=== PATIENT | male | born 1950 | race Caucasian/White ===

== ENCOUNTER 2021-10-27 09:51 | Emergency (ER) | payer MEDICARE, BC ==
[2021-10-27] MEDS ORDERED: Sodium Chloride 0.9% 10 ML Syringe FLUSH PRN (10:50)
--- NOTE | 2021-10-27 11:08 | EDM.PDOC ---
ED HPI GENERAL MEDICAL PROBLEM - General Chief Complaint: Respiratory Problem Stated Complaint: SOB Time Seen by Provider: 10/27/21 10:41 Source of Information: Reports: Patient, Family (son/), Old Records (Patient's [employer]), RN Notes Reviewed History Limitations: Reports: No Limitations - History of Present Illness INITIAL COMMENTS - FREE TEXT/NARRATIVE: Patient is a 71-year-old male who presents to the ER for his ongoing shortness of breath. Patient was diagnosed with stage IV renal cell cancer, on . States that he only has 1 kidney. Patient states that since the diagnosis of the cancer, he has felt increasingly more short of breath. States that he is on 2 L nasal cannula at baseline but yesterday and today he did increase his oxygen needs to 3 L via nasal cannula. Patient's O2 sats around 91% on this, and respirations at around 30 breaths/min. Patient has a baseline cough and states it has not worsened, he has had no discernible fevers or chills, or any sort of nausea/vomiting/diarrhea. Patient's oncologist is Dr. Mcguire, states he is getting immunotherapy currently and he is to start oral chemo at the beginning of 2021. His last round of immunotherapy was Thursday, October 21, 2021. States he has been tolerating this fairly well. Patient also has had a consultation with Dr. Robles to see if they could get some of the "fluid taken off of his lungs", but Dr. Roblse opted to not pull this fluid off as he thought that the risk outweighed the benefit at that time. - Related Data Allergies Allergy/AdvReac Type Severity Reaction Status Date / Time No Known Allergies Allergy Verified 10/27/21 11:18 Home Meds: Home Meds Albuterol [Take Home: Albuterol 18 GM, 1 INH Pack] 2 puff INH Q4HR PRN 10/27/21 [History] Axitinib [Inlyta] 1 mg PO Q12H 10/27/21 [History] Beta-Carotene(A) w/C & E/Min [Prosight] 1 tab PO DAILY 10/27/21 [History] Ciprofloxacin HCl [Cipro] 500 mg PO BID 10/27/21 [History] Docusate Sodium [Colace] 100 mg PO BID PRN 10/27/21 [History] Losartan Potassium 100 mg PO DAILY 10/27/21 [History] Mirtazapine 15 - 30 mg PO BEDTIME 10/27/21 [History] Morphine Sulfate [Morphine Sulfate ER] 7.5 mg PO Q6HR PRN 10/27/21 [History] Slaughters-3 Fatty Acids/Fish Oil [Cvs Fish Oil 1,200 mg Softgel] 1,000 mg PO DAILY 10/27/21 [History] allopurinoL [Zyloprim] 100 mg PO TID 10/27/21 [History] atorvaSTATin [Lipitor] 10 mg PO BEDTIME 10/27/21 [History] dronabinoL [Dronabinol] 5 mg PO BID 10/27/21 [History] gemfibroziL [Gemfibrozil] 600 mg PO DAILY 10/27/21 [History] Past Medical History Gastrointestinal History: Reports: Other (See Below) (only has one kidney) Oncologic (Cancer) History: Reports: Renal (stage 4 renal cancer; starting oral chemo Nov 2021) - Past Surgical History GI Surgical History: Reports: Other (See Below) (nephrectomy) - History Comment History Comment: on continuous O2, typically on 2L ED ROS GENERAL - Review of Systems Review Of Systems: Comprehensive ROS is negative, except as noted in HPI. ED EXAM, GENERAL - Physical Exam Exam: See Below Exam Limited By: No Limitations General Appearance: Alert, WD/WN, No Apparent Distress Respiratory/Chest: No Respiratory Distress (pt is tachypenic, but has no dicernable respiratory distress), Lungs Clear, Normal Breath Sounds, No Accessory Muscle Use, Chest Non-Tender Cardiovascular: Normal Peripheral Pulses, Regular Rate, Rhythm, No Edema Peripheral Pulses: 2+: Radial (R), Femoral (L) GI/Abdominal: Normal Bowel Sounds, Soft, Non-Tender, No Distention, No Mass Extremities: Normal Inspection, Normal Capillary Refill Neurological: Alert, Oriented, Normal Cognition, No Motor/Sensory Deficits Psychiatric: Normal Affect, Normal Mood Skin Exam: Warm, Dry, Intact, Normal Color, No Rash #1 Interpretation EKG Date: 10/27/21 Time: 11:05 Rhythm: Other (sinus tach) Rate (Beats/Min): 103 [place]: Normal P-Wave: Present QRS: LBBB ST-T: Normal QT: Normal Comparison: NA - No Prior EKG EKG Interpretation Comments: No obvious ischemia or acute ST changes noted, reviewed by myself and Dr. Santos. Course - Vital Signs Last Recorded V/S: Last Vital Signs Temp 98.5 F 10/27/21 17:49 Pulse 107 H 10/27/21 17:49 Resp 18 10/27/21 17:49 BP 129/61 10/27/21 17:49 Pulse Ox 91 L 10/27/21 10:39 - Orders/Labs/Meds Orders: Active Orders 24 hr Category Date Time Status Notify Provider Consults [RC] ASDIRECTED Care 10/27/21 14:07 Active Peripheral IV Care [RC] . DIRECTED Care 10/27/21 10:51 Active Consult to Physician [CONS] Stat Cons 10/27/21 14:06 Active BLOOD CULTURE [MREF] Stat Lab 10/27/21 12:35 Received BLOOD CULTURE [MREF] Stat Lab 10/27/21 12:46 Received UA W/MICROSCOPIC [URIN] Stat Lab 10/27/21 12:02 Ordered Sodium Chloride 0.9% [Normal Saline] 250 ml Med 10/27/21 13:45 Active IV ASDIRECTED Sodium Chloride 0.9% [Saline Flush] Med 10/27/21 10:50 Active 10 ml FLUSH ASDIRECTED PRN Blood Culture x2 Reflex Set [OM.PC] Stat Oth 10/27/21 12:19 Ordered Peripheral IV Insertion Adult [OM.PC] Routine Oth 10/27/21 10:50 Ordered Transfuse PRBC [Transfuse Red Blood Cells] [COMM] Stat Oth 10/27/21 12:56 Ordered Transfuse Red Blood Cells [COMM] Stat Oth 10/27/21 14:14 Ordered EKG 12 Lead [EK] Stat Ther 10/27/21 10:51 Ordered Medication Orders Sodium Chloride (Normal Saline) 250 mls @ 25 mls/hr IV ASDIRECTED GILBERT Last Admin: 10/27/21 14:25 Dose: 25 mls/hr Documented by: DORA Sodium Chloride (Sodium Chloride 0.9% 10 Ml Syringe) 10 ml FLUSH ASDIRECTED PRN PRN Reason: Keep Vein Open Last Admin: 10/27/21 11:21 Dose: 10 ml Documented by: CINTHYA Labs: Laboratory Tests 10/27/21 10/27/21 10/27/21 Range/Units 11:14 11:14 11:14 WBC 28.79 H (4.23-9.07) K/mm3 RBC 2.71 L (4.63-6.08) M/mm3 Hgb 6.9 L* (13.7-17.5) gm/dl Hct 24.6 L (40.1-51.0) % MCV 90.8 (79.0-92.2) fl MCH 25.5 L (25.7-32.2) pg MCHC 28.0 L (32.2-35.5) g/dl RDW Std Deviation 55.7 H (35.1-43.9) fL Plt Count 649 H (163-337) K/mm3 MPV 9.3 L (9.4-12.3) fl Neut % (Auto) 81.1 H (34.0-67.9) % Lymph % (Auto) 4.8 L (21.8-53.1) % Union % (Auto) 11.3 (5.3-12.2) % Eos % (Auto) 0.4 L (0.8-7.0) Baso % (Auto) 0.2 (0.1-1.2) % Neut # (Auto) 23.35 H (1.78-5.38) K/mm3 Lymph # (Auto) 1.38 (1.32-3.57) K/mm3 [place] # (Auto) 3.25 H (0.30-0.82) K/mm3 Eos # (Auto) 0.11 (0.04-0.54) K/mm3 Baso # (Auto) 0.07 (0.01-0.08) K/mm3 Manual Slide Review Abnormal smear Sodium 139 (136-145) mEq/L Potassium 4.4 (3.5-5.1) mEq/L Chloride 104 (98-107) mEq/L Carbon Dioxide 25 (21-32) mEq/L Anion Gap 14.4 (5-15) BUN 39 H (7-18) mg/dL Creatinine 1.6 H (0.7-1.3) mg/dL Est Cr Clr Drug Dosing TNP Estimated GFR (MDRD) 43 (>60) mL/min BUN/Creatinine Ratio 24.4 H (14-18) Glucose 117 H (70-99) mg/dL Calcium 8.7 (8.5-10.1) mg/dL Magnesium 2.0 (1.8-2.4) mg/dL Total Bilirubin 0.8 (0.2-1.0) mg/dL AST 31 (15-37) U/L ALT 17 (16-63) U/L Alkaline Phosphatase 72 (46-116) U/L Troponin I (0.00-0.056) ng/mL C-Reactive Protein 39.0 H* (<1.0) mg/dL NT-Pro-B Natriuret Pep (0-125) pg/mL Total Protein 7.3 (6.4-8.2) g/dl Albumin 1.4 L (3.4-5.0) g/dl Globulin 5.9 gm/dL Albumin/Globulin Ratio 0.2 L (1-2) Influenza Type A RNA (NEGATIVE) Influenza Type B RNA (NEGATIVE) SARS-CoV-2 RNA ([place]EL) (NEGATIVE) Blood Type Gel Antibody Screen Crossmatch 10/27/21 10/27/21 10/27/21 Range/Units 11:14 11:14 11:14 WBC (4.23-9.07) K/mm3 RBC (4.63-6.08) M/mm3 Hgb (13.7-17.5) gm/dl Hct (40.1-51.0) % MCV (79.0-92.2) fl MCH (25.7-32.2) pg MCHC (32.2-35.5) g/dl RDW Std Deviation (35.1-43.9) fL Plt Count (163-337) K/mm3 MPV (9.4-12.3) fl Neut % (Auto) (34.0-67.9) % Lymph % (Auto) (21.8-53.1) % Union % (Auto) (5.3-12.2) % Eos % (Auto) (0.8-7.0) Baso % (Auto) (0.1-1.2) % Neut # (Auto) (1.78-5.38) K/mm3 Lymph # (Auto) (1.32-3.57) K/mm3 [place] # (Auto) (0.30-0.82) K/mm3 Eos # (Auto) (0.04-0.54) K/mm3 Baso # (Auto) (0.01-0.08) K/mm3 Manual Slide Review Sodium (136-145) mEq/L Potassium (3.5-5.1) mEq/L Chloride (98-107) mEq/L Carbon Dioxide (21-32) mEq/L Anion Gap (5-15) BUN (7-18) mg/dL Creatinine (0.7-1.3) mg/dL Est Cr Clr Drug Dosing Estimated GFR (MDRD) (>60) mL/min BUN/Creatinine Ratio (14-18) Glucose (70-99) mg/dL Calcium (8.5-10.1) mg/dL Magnesium (1.8-2.4) mg/dL Total Bilirubin (0.2-1.0) mg/dL AST (15-37) U/L ALT (16-63) U/L Alkaline Phosphatase (46-116) U/L Troponin I < 0.017 (0.00-0.056) ng/mL C-Reactive Protein (<1.0) mg/dL NT-Pro-B Natriuret Pep 2627 H (0-125) pg/mL Total Protein (6.4-8.2) g/dl Albumin (3.4-5.0) g/dl Globulin gm/dL Albumin/Globulin Ratio (1-2) Influenza Type A RNA (NEGATIVE) Influenza Type B RNA (NEGATIVE) SARS-CoV-2 RNA ([place]) (NEGATIVE) Blood Type A POSITIVE Gel Antibody Screen Negative Crossmatch 10/27/21 10/27/21 Range/Units 11:17 11:45 WBC (4.23-9.07) K/mm3 RBC (4.63-6.08) M/mm3 Hgb (13.7-17.5) gm/dl Hct (40.1-51.0) % MCV (79.0-92.2) fl MCH (25.7-32.2) pg MCHC (32.2-35.5) g/dl RDW Std Deviation (35.1-43.9) fL Plt Count (163-337) K/mm3 MPV (9.4-12.3) fl Neut % (Auto) (34.0-67.9) % Lymph % (Auto) (21.8-53.1) % [place] % (Auto) (5.3-12.2) % Eos % (Auto) (0.8-7.0) Baso % (Auto) (0.1-1.2) % Neut # (Auto) (1.78-5.38) K/mm3 Lymph # (Auto) (1.32-3.57) K/mm3 [place] # (Auto) (0.30-0.82) K/mm3 Eos # (Auto) (0.04-0.54) K/mm3 Baso # (Auto) (0.01-0.08) K/mm3 Manual Slide Review Sodium (136-145) mEq/L Potassium (3.5-5.1) mEq/L Chloride (98-107) mEq/L Carbon Dioxide (21-32) mEq/L Anion Gap (5-15) BUN (7-18) mg/dL Creatinine (0.7-1.3) mg/dL Est Cr Clr Drug Dosing Estimated GFR (MDRD) (>60) mL/min BUN/Creatinine Ratio (14-18) Glucose (70-99) mg/dL Calcium (8.5-10.1) mg/dL Magnesium (1.8-2.4) mg/dL Total Bilirubin (0.2-1.0) mg/dL AST (15-37) U/L ALT (16-63) U/L Alkaline Phosphatase (46-116) U/L Troponin I (0.00-0.056) ng/mL C-Reactive Protein (<1.0) mg/dL NT-Pro-B Natriuret Pep (0-125) pg/mL Total Protein (6.4-8.2) g/dl Albumin (3.4-5.0) g/dl Globulin gm/dL Albumin/Globulin Ratio (1-2) Influenza Type A RNA Negative (NEGATIVE) Influenza Type B RNA Negative (NEGATIVE) SARS-CoV-2 RNA ([place]) Negative (NEGATIVE) Blood Type Gel Antibody Screen Crossmatch See Detail Meds: Medications Generic Name Dose Route Start Last Admin Trade Name Freq PRN Reason Stop Dose Admin Sodium Chloride 250 mls @ 25 mls/hr 10/27/21 13:45 10/27/21 14:25 Normal Saline IV 25 mls/hr ASDIRECTED GILBERT Administration Sodium Chloride 10 ml 12/20/21 10:50 10/27/21 11:21 Sodium Chloride 0.9% 10 Ml Syringe FLUSH 10 ml ASDIRECTED PRN Administration Keep Vein Open Discontinued Medications Generic Name Dose Route Start Last Admin Trade Name Zamzam PRN Reason Stop Dose Admin Furosemide 20 mg 10/27/21 15:09 10/27/21 17:22 Furosemide 40 Mg/4 Ml Vial IVPUSH 10/27/21 15:10 20 mg NOW ONE Administration - Re-Assessments/Exams Free Text/Narrative Re-Assessment/Exam: 10/27/21 11:07 Patient presents to the ER for the evaluation of his worsening shortness of breath, we will go ahead and repeat some labs, chest x-ray for ongoing evaluation/management. 10/27/21 12:06 Chest x-ray demonstrates a hazy density within the left mid and lower lung, questionable small left-sided pleural effusion. Due to these findings we will go ahead and do a chest CT with no contrast for further evaluation. Labs have started to result, CBC is markedly elevated at 28,000 with 81% neutrophils on the auto differential, hemoglobin is low at 6.9, metabolic panel shows elevated creatinine at 1.6, low GFR at 43 and a BUN at 39, and a BNP at 2900. Troponin is undetectably low and COVID/flu were negative. 10/27/21 13:21 CT demonstrated a fairly large left-sided pleural effusion causing left-sided atelectasis, right lung field is clear. No mediastinal adenopathy was appreciated. Images of the abdomen show numerous nodular densities within the mesentery presumably due to multiple lymph nodes. Mild amount of ascites seen around the liver and spleen. I did have a chance to talk with Yara Pearson, his oncology nurse practitioner, and she does recommend that we transfuse and try to do a thoracentesis if possible. I did go over all of the other lab values with her as well, and she thought that all of these sounded extremely normal for his clinical picture and that he could likely be discharged to home after the transfusion and thoracentesis if able, unless his clinical course would deteriorate. I did call Dr. Jordan, as our surgeon on-call and he would like the patient to try to get the blood initially and see if the patient can follow-up on outpatient basis for the thoracentesis. 10/27/21 14:[address] Jordan again, and due to the patient living in [place] I asked if he would come evaluate the patient for possible thoracentesis, he stated he would be down shortly and to have the nurse get a thoracentesis tray ready. 10/27/21 15:21 Dr. Jordan was in to evaluate the patient, and after review of his labs, he would like the patient to try to be diuresed, and hold off on the thoracentesis at this time, so I have ordered 20 mg IV Lasix to be given. 10/27/21 18:42 Was made aware by nursing staff, that the patient tolerated the first unit well, 20 mg Lasix was given in between the units and she states that he did void however she is not sure how much this was at this time. I was able to speak with Yara Pearson again, she states that she will start him on oral Lasix to robles, and she has repeat labs set up for him. She was raising the question of a PE at this time however due to his kidney status at today's visit along with his fluid retention we did not do a CTA of his chest, she can arrange for a V/Q out patient scan for management if still clinically warranted. Departure - Departure Time of Disposition: 18:51 Disposition: Home, Self-Care 01 Condition: Good Clinical Impression: Low hemoglobin, Elevated brain natriuretic peptide (BNP) level, SOB (shortness of breath) - Discharge Information *PRESCRIPTION DRUG MONITORING PROGRAM REVIEWED*: No *COPY OF PRESCRIPTION DRUG MONITORING REPORT IN PATIENT JACK: No Instructions: Managing Low Blood Counts During Cancer Treatment Referrals: Carlos Eduardo Mcguire MD [Primary Care Provider] - Forms: ED Department Discharge Additional Instructions: You were evaluated in the ER today for your acute shortness of breath. Your work-up in the ER today included a Covid screen, chest imaging and labs. This did demonstrate a low hemoglobin, and elevated BNP, and a worsening pleural effusion. Due to your low blood count, and elevated BNP, you did require blood transfusion and needed to be given some Lasix to get some of the fluid off. Surgery was consulted on your case regarding your worsening pleural effusion however Dr. Jordan thought you would benefit more from the blood transfusion and Lasix medication. He would recommend that you hold off on a thoracentesis at this time. I did speak with your provider, Yara Pearson and she has set up labs for you for tomorrow, and you will be started on oral Lasix for ongoing management on outpatient basis. Recommend you follow-up with Juanita tomorrow for ongoing management if needed, she can arrange a VQ scan, and/or another consult with Dr. Robles for possible thoracentesis. Unfortunately it is ultimately surgeons decision to do or not to do procedures, so I apologize for not being able to get the thoracentesis done for you today however I do believe strongly in Dr. Jordan's clinical judgment and if he did not think it be beneficial for you at this time; then he wouldn't recommend them. Do not hesitate to return to the ER at any time if symptoms change or worsen. Thank you for allowing and choosing us to be involved in your healthcare needs. Sepsis Event Note (ED) - Evaluation Sepsis Screening Result: No Definite Risk - Focused Exam Vital Signs: Vital Signs Temp Temp Pulse Resp BP Pulse Ox 10/27/21 17:49 98.5 F 107 H 18 129/61 10/27/21 17:22 98.1 F 110 H 18 133/71 10/27/21 14:27 99 26 H 111/57 L 10/27/21 14:18 97.4 F 101 H 28 H 115/57 L 10/27/21 10:39 96.1 F L 104 H 20 110/59 L 91 L - My Orders Last 24 Hours: My Active Orders 10/27/21 10:50 Sodium Chloride 0.9% [Saline Flush] 10 ml FLUSH ASDIRECTED PRN Peripheral IV Insertion Adult [OM.PC] Routine 10/27/21 10:51 Peripheral IV Care [RC] . DIRECTED EKG 12 Lead [EK] Stat 10/27/21 12:02 UA W/MICROSCOPIC [URIN] Stat 10/27/21 12:19 Blood Culture x2 Reflex Set [OM.PC] Stat 10/27/21 12:35 BLOOD CULTURE [MREF] Stat 10/27/21 12:46 BLOOD CULTURE [MREF] Stat 10/27/21 12:56 Transfuse PRBC [Transfuse Red Blood Cells] [COMM] Stat 10/27/21 13:45 Sodium Chloride 0.9% [Normal Saline] 250 ml IV ASDIRECTED 10/27/21 14:06 Consult to Physician [CONS] Stat 10/27/21 14:07 Notify Provider Consults [RC] ASDIRECTED 10/27/21 14:14 Transfuse Red Blood Cells [COMM] Stat - Assessment/Plan Last 24 Hours: My Active Orders 10/27/21 10:50 Sodium Chloride 0.9% [Saline Flush] 10 ml FLUSH ASDIRECTED PRN Peripheral IV Insertion Adult [OM.PC] Routine 10/27/21 10:51 Peripheral IV Care [RC] . DIRECTED EKG 12 Lead [EK] Stat 10/27/21 12:02 UA W/MICROSCOPIC [URIN] Stat 10/27/21 12:19 Blood Culture x2 Reflex Set [OM.PC] Stat 10/27/21 12:35 BLOOD CULTURE [MREF] Stat 10/27/21 12:46 BLOOD CULTURE [MREF] Stat 10/27/21 12:56 Transfuse PRBC [Transfuse Red Blood Cells] [COMM] Stat 10/27/21 13:45 Sodium Chloride 0.9% [Normal Saline] 250 ml IV ASDIRECTED 10/27/21 14:06 Consult to Physician [CONS] Stat 10/27/21 14:07 Notify Provider Consults [RC] ASDIRECTED 10/27/21 14:14 Transfuse Red Blood Cells [COMM] Stat
--- NOTE | 2021-10-27 11:47 | CR ---
Chest: Portable view of the chest was obtained. Comparison: No prior chest imaging is available. Hazy density is seen within the left mid and lower lung. Difficult to exclude a small pleural effusion based on this exam. Right lung is clear. Heart size and mediastinum are within normal limits. Scattered degenerative spurring is noted within the spine. Degenerative change is seen within both shoulders. Impression: 1. Hazy density within the left mid and lower lung. Questionable small left-sided pleural effusion. 2. Degenerative change as noted above. Diagnostic code #3
[2021-10-27 11:59] LABS: CORONAVIRUS COVID-19 NAA NEGATIVE (NEGATIVE)
--- NOTE | 2021-10-27 12:38 | CT ---
CT chest Technique: Multiple axial sections through the chest were obtained. Intravenous contrast was not utilized. Reconstructed coronal and sagittal images were obtained. Comparison: Prior chest x-ray performed earlier on the same day (11:22 AM). Findings: Fairly large left-sided pleural effusion is seen. Pleural effusion causes atelectasis within the left lung. Small portion of the left upper lung is clear. Right lung shows no acute parenchymal change. Thoracic aorta shows atherosclerotic change. No mediastinal adenopathy is seen. No axillary adenopathy is seen. Mild coronary artery calcification is noted. Minimal pericardial effusion is seen. Ascites is noted within the abdomen around the spleen and liver. Diffuse nodular densities are seen within the abdomen which presumably are due to numerous mesenteric lymph nodes which are most likely metastatic. Small cyst is noted within the left kidney. Bone window settings were reviewed which show scattered degenerative change within the spine. No acute osseous abnormality is appreciated. Impression: 1. Fairly large left-sided pleural effusion causing left-sided atelectasis. 2. Right lung is clear. No mediastinal adenopathy is seen. 3. Images of the abdomen show numerous nodular densities within the mesentery presumably due to multiple lymph nodes. Mild amount of ascites is seen around the liver and spleen. 4. Mild coronary artery calcification is seen. Diagnostic code #9
[2021-10-27] MEDS ORDERED: Sodium Chloride 0.9% 250 ML IV SCH (13:45)
--- NOTE | 2021-10-27 14:26 | PCM.CONS ---
H&P History of Present Illness - General Date of Service: 10/27/21 Source of Information: Patient History Limitations: Reports: No Limitations - History of Present Illness Initial Comments - Free Text/Narative: Mr. Tejada is a 71 yo man with stage IV renal cell carcinoma with a left sided pleural effusion. He presents to the ER today with shortness of breath. He saw a general surgeon last week in regards to the pleural effusion and risk of thoracentesis was deemed to outweigh the benefit. In the ER, the patient is anemic with a Hgb of 6.9 g/dL. In comparison to chest x-ray from last week, the effusion has not significantly progressed. He is not on comfort care measures or hospice and is planning on additional chemotherapy soon. - Related Data Allergies/Adverse Reactions: Allergies Allergy/AdvReac Type Severity Reaction Status Date / Time No Known Allergies Allergy Verified 10/27/21 11:18 Home Medications: Home Meds Albuterol [Take Home: Albuterol 18 GM, 1 INH Pack] 2 puff INH Q4HR PRN 10/27/21 [History] Axitinib [Inlyta] 1 mg PO Q12H 10/27/21 [History] Beta-Carotene(A) w/C & E/Min [Prosight] 1 tab PO DAILY 10/27/21 [History] Ciprofloxacin HCl [Cipro] 500 mg PO BID 10/27/21 [History] Docusate Sodium [Colace] 100 mg PO BID PRN 10/27/21 [History] Losartan Potassium 100 mg PO DAILY 10/27/21 [History] Mirtazapine 15 - 30 mg PO BEDTIME 10/27/21 [History] Morphine Sulfate [Morphine Sulfate ER] 7.5 mg PO Q6HR PRN 10/27/21 [History] [place]-3 Fatty Acids/Fish Oil [Cvs Fish Oil 1,200 mg Softgel] 1,000 mg PO DAILY 10/27/21 [History] allopurinoL [Zyloprim] 100 mg PO TID 10/27/21 [History] atorvaSTATin [Lipitor] 10 mg PO BEDTIME 10/27/21 [History] dronabinoL [Dronabinol] 5 mg PO BID 10/27/21 [History] gemfibroziL [Gemfibrozil] 600 mg PO DAILY 10/27/21 [History] Past Medical History Gastrointestinal History: Reports: Other (See Below) (only has one kidney) Oncologic (Cancer) History: Reports: Renal (stage 4 renal cancer; starting oral chemo Nov 2021) - Past Surgical History GI Surgical History: Reports: Other (See Below) (nephrectomy) - History Comment History Comment: on continuous O2, typically on 2L H&P Review of Systems - Review of Systems: Review Of Systems: See Below General: Reports: Weakness HEENT: Reports: No Symptoms Pulmonary: Reports: Shortness of Breath Cardiovascular: Reports: No Symptoms Gastrointestinal: Reports: No Symptoms Genitourinary: Reports: No Symptoms Musculoskeletal: Reports: No Symptoms Skin: Reports: No Symptoms Psychiatric: Reports: No Symptoms Neurological: Reports: No Symptoms Hematologic/Lymphatic: Reports: Anemia Immunologic: Reports: No Symptoms Exam - Exam Exam: See Below - Vital Signs Vital Signs: Last Vital Signs Temp 36.3 C 10/27/21 14:18 Pulse 101 H 10/27/21 14:18 Resp 28 H 10/27/21 14:18 BP 115/57 L 10/27/21 14:18 Pulse Ox 91 L 10/27/21 10:39 - Exam Quality Assessment: Supplemental Oxygen General: Alert, Oriented, Cooperative HEENT: Conjunctiva Clear Lungs: Other (tachypneic with shallow respirations. Slightly diminished breath sounds on left side on auscultation anteriorly. ) Cardiovascular: Regular Rate, Regular Rhythm GI/Abdominal Exam: Soft Extremities: Other (non-pitting LE edema bilaterally) Skin: Warm, Dry Psychiatric: Normal Mood - Patient Data Lab Results Last 24 hrs: Laboratory Results - last 24 hr 10/27/21 10/27/21 10/27/21 Range/Units 11:14 11:14 11:14 WBC 28.79 H (4.23-9.07) K/mm3 RBC 2.71 L (4.63-6.08) M/mm3 Hgb 6.9 L* (13.7-17.5) gm/dl Hct 24.6 L (40.1-51.0) % MCV 90.8 (79.0-92.2) fl MCH 25.5 L (25.7-32.2) pg MCHC 28.0 L (32.2-35.5) g/dl RDW Std Deviation 55.7 H (35.1-43.9) fL Plt Count 649 H (163-337) K/mm3 MPV 9.3 L (9.4-12.3) fl Neut % (Auto) 81.1 H (34.0-67.9) % Lymph % (Auto) 4.8 L (21.8-53.1) % Edwards % (Auto) 11.3 (5.3-12.2) % Eos % (Auto) 0.4 L (0.8-7.0) Baso % (Auto) 0.2 (0.1-1.2) % Neut # (Auto) 23.35 H (1.78-5.38) K/mm3 Lymph # (Auto) 1.38 (1.32-3.57) K/mm3 Edwards # (Auto) 3.25 H (0.30-0.82) K/mm3 Eos # (Auto) 0.11 (0.04-0.54) K/mm3 Baso # (Auto) 0.07 (0.01-0.08) K/mm3 Manual Slide Review Abnormal smear Sodium 139 (136-145) mEq/L Potassium 4.4 (3.5-5.1) mEq/L Chloride 104 (98-107) mEq/L Carbon Dioxide 25 (21-32) mEq/L Anion Gap 14.4 (5-15) BUN 39 H (7-18) mg/dL Creatinine 1.6 H (0.7-1.3) mg/dL Est Cr Clr Drug Dosing TNP Estimated GFR (MDRD) 43 (>60) mL/min BUN/Creatinine Ratio 24.4 H (14-18) Glucose 117 H (70-99) mg/dL Calcium 8.7 (8.5-10.1) mg/dL Magnesium 2.0 (1.8-2.4) mg/dL Total Bilirubin 0.8 (0.2-1.0) mg/dL AST 31 (15-37) U/L ALT 17 (16-63) U/L Alkaline Phosphatase 72 (46-116) U/L Troponin I (0.00-0.056) ng/mL C-Reactive Protein 39.0 H* (<1.0) mg/dL NT-Pro-B Natriuret Pep (0-125) pg/mL Total Protein 7.3 (6.4-8.2) g/dl Albumin 1.4 L (3.4-5.0) g/dl Globulin 5.9 gm/dL Albumin/Globulin Ratio 0.2 L (1-2) Influenza Type A RNA (NEGATIVE) Influenza Type B RNA (NEGATIVE) SARS-CoV-2 RNA ([place]) (NEGATIVE) Blood Type Gel Antibody Screen Crossmatch 10/27/21 10/27/21 10/27/21 Range/Units 11:14 11:14 11:14 WBC (4.23-9.07) K/mm3 RBC (4.63-6.08) M/mm3 Hgb (13.7-17.5) gm/dl Hct (40.1-51.0) % MCV (79.0-92.2) fl MCH (25.7-32.2) pg MCHC (32.2-35.5) g/dl RDW Std Deviation (35.1-43.9) fL Plt Count (163-337) K/mm3 MPV (9.4-12.3) fl Neut % (Auto) (34.0-67.9) % Lymph % (Auto) (21.8-53.1) % Edwards % (Auto) (5.3-12.2) % Eos % (Auto) (0.8-7.0) Baso % (Auto) (0.1-1.2) % Neut # (Auto) (1.78-5.38) K/mm3 Lymph # (Auto) (1.32-3.57) K/mm3 Edwards # (Auto) (0.30-0.82) K/mm3 Eos # (Auto) (0.04-0.54) K/mm3 Baso # (Auto) (0.01-0.08) K/mm3 Manual Slide Review Sodium (136-145) mEq/L Potassium (3.5-5.1) mEq/L Chloride (98-107) mEq/L Carbon Dioxide (21-32) mEq/L Anion Gap (5-15) BUN (7-18) mg/dL Creatinine (0.7-1.3) mg/dL Est Cr Clr Drug Dosing Estimated GFR (MDRD) (>60) mL/min BUN/Creatinine Ratio (14-18) Glucose (70-99) mg/dL Calcium (8.5-10.1) mg/dL Magnesium (1.8-2.4) mg/dL Total Bilirubin (0.2-1.0) mg/dL AST (15-37) U/L ALT (16-63) U/L Alkaline Phosphatase (46-116) U/L Troponin I < 0.017 (0.00-0.056) ng/mL C-Reactive Protein (<1.0) mg/dL NT-Pro-B Natriuret Pep 2627 H (0-125) pg/mL Total Protein (6.4-8.2) g/dl Albumin (3.4-5.0) g/dl Globulin gm/dL Albumin/Globulin Ratio (1-2) Influenza Type A RNA (NEGATIVE) Influenza Type B RNA (NEGATIVE) SARS-CoV-2 RNA ([place]) (NEGATIVE) Blood Type A POSITIVE Gel Antibody Screen Negative Crossmatch 10/27/21 10/27/21 Range/Units 11:17 11:45 WBC (4.23-9.07) K/mm3 RBC (4.63-6.08) M/mm3 Hgb (13.7-17.5) gm/dl Hct (40.1-51.0) % MCV (79.0-92.2) fl MCH (25.7-32.2) pg MCHC (32.2-35.5) g/dl RDW Std Deviation (35.1-43.9) fL Plt Count (163-337) K/mm3 MPV (9.4-12.3) fl Neut % (Auto) (34.0-67.9) % Lymph % (Auto) (21.8-53.1) % Edwards % (Auto) (5.3-12.2) % Eos % (Auto) (0.8-7.0) Baso % (Auto) (0.1-1.2) % Neut # (Auto) (1.78-5.38) K/mm3 Lymph # (Auto) (1.32-3.57) K/mm3 Edwards # (Auto) (0.30-0.82) K/mm3 Eos # (Auto) (0.04-0.54) K/mm3 Baso # (Auto) (0.01-0.08) K/mm3 Manual Slide Review Sodium (136-145) mEq/L Potassium (3.5-5.1) mEq/L Chloride (98-107) mEq/L Carbon Dioxide (21-32) mEq/L Anion Gap (5-15) BUN (7-18) mg/dL Creatinine (0.7-1.3) mg/dL Est Cr Clr Drug Dosing Estimated GFR (MDRD) (>60) mL/min BUN/Creatinine Ratio (14-18) Glucose (70-99) mg/dL Calcium (8.5-10.1) mg/dL Magnesium (1.8-2.4) mg/dL Total Bilirubin (0.2-1.0) mg/dL AST (15-37) U/L ALT (16-63) U/L Alkaline Phosphatase (46-116) U/L Troponin I (0.00-0.056) ng/mL C-Reactive Protein (<1.0) mg/dL NT-Pro-B Natriuret Pep (0-125) pg/mL Total Protein (6.4-8.2) g/dl Albumin (3.4-5.0) g/dl Globulin gm/dL Albumin/Globulin Ratio (1-2) Influenza Type A RNA Negative (NEGATIVE) Influenza Type B RNA Negative (NEGATIVE) SARS-CoV-2 RNA ([place]) Negative (NEGATIVE) Blood Type Gel Antibody Screen Crossmatch See Detail Result Diagrams: 10/27/21 11:14 10/27/21 11:14 Sepsis Event Note - Evaluation Sepsis Screening Result: No Definite Risk - Focused Exam Vital Signs: Vital Signs Temp Temp Pulse Resp BP Pulse Ox 10/27/21 14:18 36.3 C 101 H 28 H 115/57 L 10/27/21 10:39 35.6 C L 104 H 20 110/59 L 91 L Consult PN Assessment/Plan Problem List Initiated/Reviewed/Updated: Yes Plan: 71 yo man with metastatic renal cell cancer, presenting with worsening shortness of breath. Anemic with Hgb 6.9 g/dL, and imaging showing relatively stable moderate size left pleural effusion in comparison to imaging from last week. Cross sectional imaging shows some small volume intra-abdominal ascites as well. SpO2 low 90% on 3 L NC. -Effusion appears relatively stable, and is not large enough that I think a drainage procedure would significantly improve symptoms for any length of time. He appears to be anemic and fluid overloaded; I think the better initial approach for management would include transfusion and IV diuresis with furosemide. With monitored diuresis managed by his primary doctor in [place], he will hopefully be able to avoid any procedure like thoracentesis. If symptoms fail to improve after these measures, or if the pleural effusion increases, thoracentesis may then be indicated for symptomatic relief. Requesting Provider: Lisy Date Consult Requested: 10/27/21 Reason for Consult: left pleural effusion, dyspnea, hypoxia Patient History Reviewed: Yes Admission H&P Reviewed: Yes Notified Requestor: Yes Time Spent (in minutes): 35
[2021-10-27] MEDS ORDERED: Furosemide 40 MG/4 ML VIAL IVPUSH ONE (15:09)
== END 2021-10-27 20:00 | disposition home or self-care (01) ==
LOC: JD.ED 09:51
DX: R06.02 Shortness of breath (principal); D64.9 Anemia, unspecified; R79.0 Abnormal level of blood mineral; Z79.899 Other long term (current) drug therapy; Z20.822 Contact with and (suspected) exposure to COVID-19
CPT/HCPCS: 0240U; 36415; 36430; 71045; 71250; 80053; 83735; 83880; 84484; 85025; 86140; 86850; 86900; 86901; 86922; 87040; 93005; 96374; 99285; J1940; J7050; P9016